=== PATIENT | male | born 1950 | race Caucasian/White ===

== ENCOUNTER 2017-03-20 11:37 | Day surgery (SDC) | payer MEDICARE, OTHER ==
--- NOTE | ~2017-03-20 | EGD ---
EGD REPORT [facility] [address] [id number] NAME: ELDER MARTINEZ : [birth year] STATUS : [place] [facility] [place] PAT#: [id number] AGE: 66 ADM/REG DATE : 03/20/17 MR#: [id number] REPORT SERV DATE: 03/20/17 DICTATED BY: SWETA SCHUMACHER DATE: 03/20/17 REPORT STATUS : Draft TRANSCRIBED BY: [facility] DATE: 03/20/17 End[facility] Center Patient Name: Elder Martinez Date of : 1950 Attending MD: SWETA SCHUMACHER MD Procedure Date No Time: 03/20/2017 Procedure: Colonoscopy Indications: Follow-up for history of adenomatous polyps in the colon, Positive Cologuard test Referring MD: JOEL OAKLEY MD, RAFY ETIENNE Medicines: Propofol per Anesthesia Complications: No immediate complications. Estimated blood loss: None. Procedure: Pre-Anesthesia Assessment: - After reviewing the risks and benefits, the patient was deemed in satisfactory condition to undergo the procedure. - Prior to the procedure, a History and Physical was performed, and patient medications and allergies were reviewed. The patient's tolerance of previous anesthesia was also reviewed. The risks and benefits of the procedure and the sedation options and risks were discussed with the patient. All questions were answered, and informed consent was obtained. Prior Anticoagulants: The patient has taken no previous anticoagulant or antiplatelet agents. ASA Grade Assessment: I - A normal, healthy patient. After reviewing the risks and benefits, the patient was deemed in satisfactory condition to undergo the procedure. After I obtained informed consent, the scope was passed under direct vision. Throughout the procedure, the patient's blood pressure, pulse, and oxygen saturations were monitored continuously. The CF [id number] was introduced through the anus and advanced to the cecum, identified by appendiceal orifice and ileocecal valve. The colonoscopy was performed with difficulty due to significant looping and a tortuous colon. Successful completion of the procedure was aided by straightening and shortening the scope to obtain bowel loop reduction and applying abdominal pressure. The ileocecal valve and appendiceal orifice were photographed. The patient tolerated the procedure well. The quality of the bowel preparation was good. The bowel preparation used was split dose polyethylene glycol (PEG). Scope withdrawal time was greater than 9 minutes. EGD REPORT [place] [id number] [facility] [place]. [address] NAME: ELDER MARTINEZ : [birth year] STATUS : [facility] [place] PAT#: [id number] AGE: 66 ADM/REG DATE : 03/20/17 MR#: [id number] REPORT SERV DATE: 03/20/17 DICTATED BY: SWETA SCHUMACHER DATE: 03/20/17 REPORT STATUS : Draft TRANSCRIBED BY: [employer] DATE: 03/20/17 Findings: The perianal and digital rectal examinations were normal. Pertinent negatives include normal sphincter tone. Non-bleeding internal hemorrhoids were found during retroflexion and were medium-sized and Grade I (internal hemorrhoids that do not prolapse). A few small and large-mouthed diverticula were found in the entire colon. The exam was otherwise without abnormality. Impression: - Non-bleeding internal hemorrhoids. - Mild diverticulosis in the entire examined colon. - The examination was otherwise normal. Recommendation: - Discharge patient to home (ambulatory). - High fiber diet indefinitely. - Continue present medications. - Repeat colonoscopy in 5 years for surveillance. - Patient has a contact number available for emergencies. The signs and symptoms of potential delayed complications were discussed with the patient. Return to normal activities tomorrow. Written discharge instructions were provided to the patient. Procedure Code(s): --- Professional --- 55171, Colonoscopy, flexible, proximal to splenic flexure; diagnostic, with or without collection of specimen(s) by brushing or washing, with or without colon decompression (separate procedure) Diagnosis Code(s): --- Professional --- K64.0, First degree hemorrhoids K57.30, Diverticulosis of large intestine without perforation or abscess without bleeding Z86.010, Personal history of colonic polyps CPT copyright 2013 [employer]. All rights reserved. The codes documented in this report are preliminary and upon bb shot packer review may be revised to meet current compliance requirements. SWETA SCHUMACHER MD 03/20/2017 2:18 PM This report has been signed electronically. Number of Addenda: 0 EGD REPORT [facility] [address] [id number] NAME: ELDER MARTINEZ : [birth year] STATUS : [facility] [place] PAT#: [id number] AGE: 66 ADM/REG DATE : 03/20/17 MR#: [id number] REPORT SERV DATE: 03/20/17 DICTATED BY: SWETA SCHUMACHER DATE: 03/20/17 REPORT STATUS : Draft TRANSCRIBED BY: [employer] DATE: 03/20/17 Note Initiated On: 03/20/2017 1:44 PM Scope Withdrawal Time 0 hours 9 minutes 7 seconds [address] [id number]
[~2017-03-20 11:37] MED LIST: ADVIL PO; BL FLAX SEED1000 MG PO; CLARIT10 PO; FLAXSEED OIL1000 MG PO; NORITATE1% TOP; PREPARATIO2 PR; PROBIOTIC; SAMOLINIC PO; STOOL SOFTEN240 MG PO; VITAMIN D31000 UNIT PO
== END 2017-03-20 23:59 | disposition home health service (06) ==
LOC: DMU 11:37
PROVIDERS: Internal Medicine Gastroenterology
PROC: 0DJD8ZZ Inspection of Lower Intestinal Tract, Via Natural or Artificial Opening Endoscopic (ICD-10-PCS; principal; 2017-03-20 13:30)
DX: K64.0 First degree hemorrhoids (principal); K57.30 Diverticulosis of large intestine without perforation or abscess without bleeding; J45.909 Unspecified asthma, uncomplicated; Z86.010 Personal history of colon polyps; Z88.0 Allergy status to penicillin; Z87.891 Personal history of nicotine dependence; Z98.890 Other specified postprocedural states